=== PATIENT | female | born 1975 | race Caucasian/White ===

== ENCOUNTER 2017-05-23 16:40 | Emergency (ER) | payer MEDICAID, OTHER ==
[~2017-05-23] VITALS: Ht 165.1 cm; Wt 77.1 kg
[~2017-05-23 16:40] MED LIST: ACET-73 PO; ALBU8.5H8 INH
--- NOTE | 2017-05-23 18:39 | NUR ---
assissted md examining the pt breast, wound with d/c under the left breast.
--- NOTE | 2017-05-23 19:04 | NUR ---
Patient discharged to home in stable conditon. Written and verbal after care instructions given. Patient verbalizes understanding of instructions.
== END 2017-05-23 19:05 | disposition home or self-care (01) ==
LOC: ER 16:41
DX: S00.83XA Contusion of other part of head, initial encounter (principal); J45.909 Unspecified asthma, uncomplicated; N61.0 Mastitis without abscess; W22.8XXA Striking against or struck by other objects, initial encounter; Y92.89 Other specified places as the place of occurrence of the external cause; Y93.89 Activity, other specified; Y99.8 Other external cause status
CPT/HCPCS: 99283; A4663